=== PATIENT | female | born 1970 | race Caucasian/White ===

== ENCOUNTER 2017-09-03 14:33 | Emergency (ER) | payer MEDICAID, OTHER ==
[~2017-09-03] VITALS: Ht 149.9 cm; Wt 60.1 kg
[2017-09-03] MEDS ORDERED: SODIUM CHLORIDE FLUSH 10ML SYR IVF ONE (15:00)
[2017-09-03 15:13] LABS: ALBUMIN 4.3 g/dL (3.4-5.0); ANION GAP 8 mmol/L (5-15); CALCIUM 9.3 mg/dL (8.5-10.1); CHLORIDE 108 mmol/L (98-107); CREATININE 0.65 mg/dL (0.55-1.02)
[2017-09-03 15:16] LABS: BASOPHILS # (AUTO) 0.07 x10^3/uL (0-0.1); BASOPHILS % (AUTO) 1 % (0-1); EOSINOPHILS # (AUTO) 0.06 x10^3/uL (0-0.4); EOSINOPHILS % (AUTO) 1 % (1-7); LYMPHOCYTES # (AUTO) 3.16 x10^3/uL (1-3.4); LYMPHOCYTES % (AUTO) 36 % (22-44); MD NO; MEAN CORPUSCULAR HEMOGLOBIN 28.7 pg (27.0-34.8); MEAN CORPUSCULAR HGB CONC 33.3 g/dL (32.4-35.8); MEAN CORPUSCULAR VOLUME 86.2 fL (80-100); MEAN PLATELET VOLUME 9.3 fL (7.4-10.4); MONOCYTES # (AUTO) 0.75 x10^3/uL (0.2-0.8); MONOCYTES % (AUTO) 9 % (2-9); NEUTROPHILS # (AUTO) 4.82 x10^3/uL (1.8-6.8); NEUTROPHILS % (AUTO) 54 % (42-75); PLATELET COUNT 377 x10^3/uL (130-400); RED BLOOD COUNT 5.03 x10^6/uL (3.82-5.3); RED CELL DISTRIBUTION WIDTH 13.7 % (9.6-15.2)
[2017-09-03 15:17] LABS: TROPONIN I < 0.015 ng/mL (0.000-0.045)
[2017-09-03 15:50] LABS: T4 (THYROXINE) 12.3 mcg/dL (4.8-13.9)
[2017-09-03 15:52] VITALS: BP 172/102
[2017-09-03 15:54] LABS: MICROSCOPIC AUTO
[2017-09-03 15:55] LABS: CULTURE INDICATED? YES
[2017-09-03 15:59] LABS: THYROID STIMULATING HORMONE 0.808 mIU/L (0.358-3.740)
== END 2017-09-03 17:09 | disposition home or self-care (01) ==
LOC: ED 17:07
DX: R55 Syncope and collapse (principal); I10 Essential (primary) hypertension; R10.9 Unspecified abdominal pain; R53.83 Other fatigue; R53.1 Weakness
CPT/HCPCS: 36415; 71045; 80048; 81001; 82040; 83880; 84436; 84443; 84484; 84703; 85025; 86850; 86900; 87086; 93005; 99285

== ENCOUNTER 2017-11-03 08:21 | Emergency (ER) | payer MEDICAID ==
[~2017-11-03] VITALS: Ht 149.9 cm; Wt 58.3 kg
[2017-11-03 08:23] VITALS: BP 163/96
[2017-11-03] MEDS ORDERED: PROPARACAINE OPHTH 0.5%, 15ML ONE (08:34)
[2017-11-03] MEDS ORDERED: PROPARACAINE OPHTH 0.5%, 15ML RIGHTEYE ONE (09:30)
== END 2017-11-03 08:55 | disposition home or self-care (01) ==
LOC: ED 08:45
DX: S05.01XA Injury of conjunctiva and corneal abrasion without foreign body, right eye, initial encounter (principal); X58.XXXA Exposure to other specified factors, initial encounter; Y93.89 Activity, other specified; Y92.89 Other specified places as the place of occurrence of the external cause; Y99.8 Other external cause status
CPT/HCPCS: 99283

== ENCOUNTER 2018-03-04 19:17 | Emergency (ER) | payer MEDICAID ==
[~2018-03-04] VITALS: Ht 149.9 cm; Wt 54.9 kg
--- NOTE | 2018-03-04 19:38 | NUR ---
Assumed care of patient. C/O neck, back, right shoulder, and right hip pain after lsipping and falling on ice. No bruising noted. Will continue to monitor.
[2018-03-04 20:39] VITALS: BP 155/84
== END 2018-03-04 20:46 | disposition home or self-care (01) ==
LOC: ED 20:09
DX: S33.5XXA Sprain of ligaments of lumbar spine, initial encounter (principal); S23.3XXA Sprain of ligaments of thoracic spine, initial encounter; I10 Essential (primary) hypertension; W01.0XXA Fall on same level from slipping, tripping and stumbling without subsequent striking against object, initial encounter; Y93.89 Activity, other specified; Y92.89 Other specified places as the place of occurrence of the external cause; Y99.8 Other external cause status
CPT/HCPCS: 72072; 72110; 72220; 99283

== ENCOUNTER 2018-04-26 19:44 | Emergency (ER) | payer MEDICAID ==
[~2018-04-26] VITALS: Ht 149.9 cm; Wt 57.5 kg
[2018-04-26 19:59] VITALS: BP 179/96
[2018-04-26] MEDS ORDERED: LIDOCAINE-MPF 1%, 5ML ONE (20:54)
[2018-04-26] MEDS ORDERED: LIDOCAINE 1%, 10ML INFIL ONE (21:00)
[2018-04-26] MEDS ORDERED: HTN MED PO (21:21)
[2018-04-26] MEDS ORDERED: LEVO75TA PO (21:21)
--- NOTE | 2018-04-26 21:22 | NUR ---
Patient/Caregiver given discharge instructions and they have confirmed that they understand the instructions. Patient ambulatory with steady gait.
== END 2018-04-26 21:23 | disposition home or self-care (01) ==
LOC: ED 20:20
DX: K04.7 Periapical abscess without sinus (principal); K08.89 Other specified disorders of teeth and supporting structures; I10 Essential (primary) hypertension
CPT/HCPCS: 41800; 99283; J3490

== ENCOUNTER 2018-07-01 20:12 | Emergency (ER) | payer SELFPAY ==
[~2018-07-01] VITALS: Ht 147.3 cm; Wt 56.8 kg
[~2018-07-01 20:12] MED LIST: HTN MED PO; LEVO75TA PO
[2018-07-01 20:35] VITALS: BP 179/93
== END 2018-07-01 21:57 | disposition home or self-care (01) ==
LOC: ED 20:46
DX: J20.8 Acute bronchitis due to other specified organisms (principal); I10 Essential (primary) hypertension; Z90.710 Acquired absence of both cervix and uterus; Z77.22 Contact with and (suspected) exposure to environmental tobacco smoke (acute) (chronic)
CPT/HCPCS: 71046; 99283

== ENCOUNTER 2018-09-08 09:28 | Emergency (ER) | payer MEDICAID, OTHER ==
[~2018-09-08] VITALS: Ht 147.3 cm; Wt 60.7 kg
[2018-09-08 11:00] VITALS: BP 154/85
== END 2018-09-08 12:43 | disposition home or self-care (01) ==
LOC: ED 10:51
DX: R42 Dizziness and giddiness (principal); I10 Essential (primary) hypertension; E03.9 Hypothyroidism, unspecified; Z90.710 Acquired absence of both cervix and uterus; R51 Headache
CPT/HCPCS: 36415; 70450; 71045; 80048; 80307; 82040; 84439; 84443; 85025; 93005; 99284

== ENCOUNTER 2018-10-01 16:10 | Emergency (ER) | payer MEDICAID ==
[~2018-10-01] VITALS: Ht 149.9 cm; Wt 59.9 kg
[2018-10-01 19:34] VITALS: BP 150/82
== END 2018-10-01 19:58 | disposition home or self-care (01) ==
LOC: ED 19:52
DX: R19.7 Diarrhea, unspecified (principal); E86.0 Dehydration; R42 Dizziness and giddiness; I10 Essential (primary) hypertension; E03.9 Hypothyroidism, unspecified; F41.1 Generalized anxiety disorder; Z90.710 Acquired absence of both cervix and uterus
CPT/HCPCS: 36415; 80053; 85025; 96365; 96366; 99283; J7030